=== PATIENT | male | born 1970 | race African-American/Black ===

== ENCOUNTER 2018-04-04 08:15 | Emergency (ER) | payer SELFPAY ==
[~2018-04-04] VITALS: Ht 175.3 cm; Wt 134.0 kg
[2018-04-04 08:21] VITALS: BP 144/90
== END 2018-04-04 11:34 | disposition home or self-care (01) ==
LOC: ER 08:15
DX: H60.91 Unspecified otitis externa, right ear (principal); Z87.891 Personal history of nicotine dependence
CPT/HCPCS: 99283